=== PATIENT | male | born 1990 | race Caucasian/White ===

== ENCOUNTER 2017-09-17 12:02 | Emergency (ER) | payer BC, SELFPAY ==
[2017-09-17] MEDS ORDERED: MOTRIN 600 MG PO ONE (12:27)
--- NOTE | 2017-09-17 12:35 | ERPHSYRPT ---
- History of Present Illness Time Seen by Provider: 09/17/17 12:21 Source: patient, family Physician History: CC: right wrist pain Hx: 26 y/o patient who sees Dr Mills for ortho issues. He was playing basketball for 4 hours 3 weeks ago and felt a pop in right wrist. Pain since, worsened, some swelling. 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 Severity of Pain-Max: moderate Severity of Pain-Current: moderate Extremities Pain Location: wrist: right Allergies/Adverse Reactions: No Known Drug Allergies Allergy (Verified 09/17/17 12:43) Home Medications: No Home Meds [No Home Meds] 0 mg PO UD 05/15/16 [History] Hx Tetanus, Diphtheria Vaccination/Date Given: Yes Hx Influenza Vaccination/Date Given: No Hx Pneumococcal Vaccination/Date Given: No - Review of Systems Constitutional: No Symptoms, No Fever, No Chills Musculoskeletal: Injury (right wrist), No Back Pain, No Neck Pain Neurological: No Focal Weakness, No Parasthesia - Past Medical History Pertinent Past Medical History: No Neurological History: Migraines ENT History: No Pertinent History Cardiac History: No Pertinent History Respiratory History: No Pertinent History Endocrine Medical History: No Pertinent History Musculoskeletal History: No Pertinent History GI Medical History: No Pertinent History History: No Pertinent History Psycho-Social History: Depression, Other Male Reproductive Disorders: No Pertinent History - Past Surgical History Past Surgical History: Yes Neuro Surgical History: No Pertinent History Cardiac: No Pertinent History Respiratory: No Pertinent History Gastrointestinal: No Pertinent History Genitourinary: No Pertinent History Musculoskeletal: Orthopedic Surgery Male Surgical History: No Pertinent History Other Surgical History: CARPAL TUNEL SURGERY - Social History Smoking Status: Current every day smoker How long have you smoked: YRS Exposure to second hand smoke: Yes Drug Use: none Patient Lives Alone: No - Nursing Vital Signs Nursing Vital Signs: Initial Vital Signs Temperature 98.9 F 09/17/17 12:23 Pulse Rate 88 09/17/17 12:23 Respiratory Rate 16 09/17/17 12:23 Blood Pressure 112/50 09/17/17 12:23 O2 Sat by Pulse Oximetry 99 09/17/17 12:23 - Physical Exam General Appearance: alert Eyes, Ears, Nose, Throat Exam: moist mucous membranes Neck Exam: supple Cardiovascular/Respiratory Exam: regular rate/rhythm Shoulder Exam: normal inspection, non-tender, no evidence of injury Elbow/Forearm Exam: normal inspection, non-tender, no evidence of injury Wrist Exam: normal inspection, limited ROM (radial deviation limited, pain in dorsal radial wrist area. No redness.), No swelling Hand Exam: normal inspection, non-tender, no evidence of injury Neuro/Tendon Exam: normal sensation, normal motor functions Mental Status Exam: alert, oriented x 3, cooperative Skin Exam: warm, dry, No rash SpO2 Interpretation: normal SpO2: 99 Oxygen Delivery: Room Air - Course Nursing assessment & vital signs reviewed: Yes - Radiology Exams right wrist X-ray Interpretation: Teleradiologist Report, Negative Ordered Tests: Active Orders 24 hr Category Date Time Status Cold Application STAT Care 09/17/17 12:26 Active Splint STAT Care 09/17/17 12:26 Active WRIST (MIN 3 VIEWS) Stat Exams 09/17/17 12:26 Completed Medication Summary Discontinued Medications Generic Name Dose Route Start Last Admin Trade Name Freq PRN Reason Stop Dose Admin Ibuprofen 600 mg 09/17/17 12:27 Motrin 600 Mg PO 09/17/17 12:28 STAT ONE - Progress Progress Note: 09/17/17 12:50 He appears to have sprain or tendonitis. Advised splint, follow up with dr Mills and NSAID. Counseled pt/family regarding: diagnosis, need for follow-up, rad results - Departure Time of Disposition: 12:50 Departure Disposition: Home Clinical Impression: Tendonitis of wrist, right Condition: Stable Critical Care Time: No Referrals: DOCTOR,NO FAMILY [Primary Care Provider] - SHERON MILLS [NON-STAFF PHY W/O PRIVILEGES] - Instructions: Wrist Sprain Additional Instructions: Splint for a few days. Rx ibuprofen. Call to see Dr Mills for follow up. Prescriptions: Ibuprofen 600 mg PO Q6H PRN PRN #20 tablet PRN Reason: Pain
[2017-09-17] MEDS ORDERED: MOTRIN 600 MG ONE (12:47)
--- NOTE | 2017-09-17 12:48 | XRAY ---
Indication: Pain and loss of mobility following basketball injury 3 weeks ago. Comparison: None 3 views of the right wrist obtained. No bony, articular, or soft tissue abnormalities.
[2017-09-17 12:57] VITALS: BP 100/60; PULSE 59; O2SAT 94
== END 2017-09-17 13:13 | disposition home or self-care (01) ==
LOC: ED 12:02
DX: M77.9 Enthesopathy, unspecified (principal); X50.0XXD Overexertion from strenuous movement or load, subsequent encounter; M25.531 Pain in right wrist
CPT/HCPCS: 73110; 99283; L3908; A9270-GY

== ENCOUNTER 2017-11-23 22:35 | Emergency (ER) | payer BC ==
[2017-11-23 22:56] VITALS: O2SAT 98
--- NOTE | 2017-11-23 23:16 | ERPHSYRPT ---
- History of Present Illness Time Seen by Provider: 11/23/17 23:11 Historian: patient, family Exam Limitations: no limitations Patient Subjective Stated Complaint: pt co mid abdominal pain x2 days; constant ; anything he eats or drinks makes pain immediately worse; pt also co hiccups with any po intake x2 days; also co urinary frequency and hesitency x2 days. Triage Nursing Assessment: pt a&o x3; skin p, w, & d; ambulated to room per self ; denies any pain with palpation of abdomen; family at bedside. Physician History: pt has 2 day hx of hicups tender mid epigastrium on exam - not luigi diet and complaining of fever discussed risk and benefit of CT and pt wishes to proceed; Timing/Duration: day(s) Activities at Onset: none Quality: fullness, sharpness, throbbing Abdominal Pain Onset Location: RUQ, epigastric Pain Radiation: no radiation Severity of Pain-Max: moderate Severity of Pain-Current: moderate Associated Symptoms: nausea, other (hiccups) Allergies/Adverse Reactions: No Known Drug Allergies Allergy (Verified 11/23/17 22:57) Home Medications: No Home Meds [No Home Meds] 0 mg PO UD 05/15/16 [History] Hx Tetanus, Diphtheria Vaccination/Date Given: Yes Hx Influenza Vaccination/Date Given: No Hx Pneumococcal Vaccination/Date Given: No Immunizations Up to Date: No - Review of Systems Constitutional: Fever, Malaise, No Chills Eyes: No Symptoms Ears, Nose, & Throat: No Symptoms Respiratory: No Cough, No Dyspnea Cardiac: No Chest Pain, No Edema, No Syncope Abdominal/Gastrointestinal: Abdominal Pain, Nausea, Appetite Changes, No Vomiting, No Diarrhea Genitourinary Symptoms: No Dysuria Musculoskeletal: No Back Pain, No Neck Pain Skin: No Rash Neurological: No Dizziness, No Focal Weakness, No Sensory Changes Psychological: No Symptoms Endocrine: No Symptoms All Other Systems: Reviewed and Negative - Past Medical History Pertinent Past Medical History: No Neurological History: Migraines ENT History: No Pertinent History Cardiac History: No Pertinent History Respiratory History: No Pertinent History Endocrine Medical History: No Pertinent History Musculoskeletal History: No Pertinent History GI Medical History: No Pertinent History History: No Pertinent History Psycho-Social History: Depression, Other Male Reproductive Disorders: No Pertinent History - Past Surgical History Past Surgical History: Yes Neuro Surgical History: No Pertinent History Cardiac: No Pertinent History Respiratory: No Pertinent History Gastrointestinal: No Pertinent History Genitourinary: No Pertinent History Musculoskeletal: Orthopedic Surgery Male Surgical History: No Pertinent History Other Surgical History: CARPAL TUNEL SURGERY - Social History Smoking Status: Current every day smoker How long have you smoked: 12 Exposure to second hand smoke: No Drug Use: none Patient Lives Alone: No - Nursing Vital Signs Nursing Vital Signs: Initial Vital Signs Temperature 99.6 F 11/23/17 22:44 Pulse Rate 85 11/23/17 22:44 Respiratory Rate 16 11/23/17 22:44 Blood Pressure 140/85 11/23/17 22:44 O2 Sat by Pulse Oximetry 98 11/23/17 22:44 Pain Scale Pain Intensity 8 - Physical Exam General Appearance: no apparent distress, alert Eye Exam: PERRL/EOMI, eyes nml inspection Ears, Nose, Throat Exam: normal ENT inspection, pharynx normal, moist mucous membranes Neck Exam: normal inspection, non-tender, supple, full range of motion Respiratory Exam: normal breath sounds, lungs clear, No respiratory distress Cardiovascular Exam: regular rate/rhythm, normal heart sounds Gastrointestinal/Abdomen Exam: soft, tenderness (epigastrium and RUQ), No mass Rectal Exam: deferred Back Exam: normal inspection, normal range of motion, No CVA tenderness, No vertebral tenderness Extremity Exam: normal inspection, normal range of motion, pelvis stable Neurologic Exam: alert, oriented x 3, cooperative, normal mood/affect, nml cerebellar function, sensation nml, No motor deficits Skin Exam: normal color, warm, dry SpO2: 98 Oxygen Delivery: Room Air - Course Nursing assessment & vital signs reviewed: Yes EKG Interpreted by Me: Sinus Rhythm, NORMAL AXIS, NORMAL INTERVALS, Non- specific ST Changes - Radiology Exams Chest X-ray Interpretation: Reviewed by me, No Pneumonia, No Pneumothorax Ordered Tests: Active Orders 24 hr Category Date Time Status Clean Catch Urine Specimen STAT Care 11/23/17 22:53 Active EKG-ER Only STAT Care 11/23/17 23:17 Active IV Insertion STAT Care 11/23/17 22:53 Active NPO (ED) STAT Care 11/23/17 23:17 Active Sling Application STAT Care 11/24/17 00:15 Inactive ABDOMEN AND PELVIS W/0 CONTRAS [CT] Stat Exams 11/23/17 23:19 Taken CHEST 2 VIEWS (PA AND LAT) Stat Exams 11/23/17 23:18 Taken AMYLASE Stat Lab 11/23/17 22:45 Completed CBC W DIFF Stat Lab 11/23/17 22:45 Completed CMP Stat Lab 11/23/17 22:45 Completed LIPASE Stat Lab 11/23/17 22:45 Completed Lactic Acid Stat Lab 11/23/17 23:25 Completed TROPONIN Q3H Lab 11/23/17 22:45 Completed TROPONIN Q3H Lab 11/24/17 02:30 Ordered TROPONIN Q3H Lab 11/24/17 05:30 Ordered TROPONIN Q3H Lab 11/24/17 08:30 Ordered TROPONIN Q3H Lab 11/24/17 11:30 Ordered UA W/RFX UR CULTURE Stat Lab 11/23/17 22:45 Completed Medication Summary Discontinued Medications Generic Name Dose Route Start Last Admin Trade Name Freq PRN Reason Stop Dose Admin Sodium Chloride 1,000 mls @ 999 mls/hr 11/23/17 23:17 11/23/17 23:25 Sodium Chloride 0.9% 1000 Ml IV 11/24/17 00:17 999 mls/hr .Q1H1M STA Administration Sodium Chloride Confirm 11/23/17 23:24 Sodium Chloride 0.9% 1000 Ml Administered 11/23/17 23:25 Dose 1,000 mls @ ud .ROUTE .STK-MED ONE Ondansetron HCl 4 mg 11/23/17 23:17 11/23/17 23:25 Zofran 4 Mg/2 Ml Vial IV 11/23/17 23:18 4 mg STAT ONE Administration Ondansetron HCl Confirm 11/23/17 23:23 Zofran 4 Mg/2 Ml Vial Administered 11/23/17 23:24 Dose 4 mg .ROUTE .STK-MED ONE Lab/Rad Data: Laboratory Result Diagrams 11/23/17 22:45 11/23/17 22:45 Laboratory Results 11/23/17 11/23/17 11/23/17 Range/Units 23:25 22:45 22:45 WBC (4.0-10.5) K/mm3 RBC (4.1-5.6) M/mm3 Hgb (12.5-18.0) gm/dl Hct (42-50) % MCV (78-100) fl MCH (26-32) pg MCHC (32-36) g/dl RDW (11.5-14.0) % Plt Count (150-450) K/mm3 MPV (6-9.5) fl Gran % (36.0-66.0) % Eos # (Auto) (0-0.5) Absolute Lymphs (auto) (1.0-4.6) Absolute Monos (auto) (0.0-1.3) Lymphocytes % (24.0-44.0) % Monocytes % (0.0-12.0) % Eosinophils % (0.00-5.0) % Basophils % (0.0-0.4) % Absolute Granulocytes (1.4-6.9) Basophils # (0-0.4) Sodium (137-145) mmol/L Potassium (3.5-5.1) mmol/L Chloride (98-107) mmol/L Carbon Dioxide (22-30) mmol/L Anion Gap (5-15) MEQ/L BUN (9-20) mg/dL Creatinine (0.66-1.25) mg/dL Estimated GFR ML/MIN Glucose (74-106) mg/dL Lactic Acid 1.3 (0.4-2.0) Calcium (8.4-10.2) mg/dL Total Bilirubin (0.2-1.3) mg/dL AST (17-59) U/L ALT (0-50) U/L Alkaline Phosphatase (38-126) U/L Troponin I < 0.012 (0.000-0.034) ng/mL Serum Total Protein (6.3-8.2) g/dL Albumin (3.5-5.0) g/dL Amylase (30-110) U/L Lipase (23-300) U/L Ur Collection Type CLEAN CATCH Urine Color LT.YELLOW (YELLOW) Urine Appearance CLEAR (CLEAR) Urine pH 7.0 (5-6) Ur Specific [place] 1.010 (1.005-1.025) Urine Protein NEGATIVE (Negative) Urine Ketones NEGATIVE (NEGATIVE) Urine Blood NEGATIVE (0-5) [place]/ul Urine Nitrite NEGATIVE (NEGATIVE) Urine Bilirubin NEGATIVE (NEGATIVE) Urine Urobilinogen NORMAL (0-1) mg/dL Ur Leukocyte Esterase NEGATIVE (NEGATIVE) Urine Culture Reflexed NO (NO) Urine Glucose NEGATIVE (NEGATIVE) mg/dL Specimen Received 11/23/17 [id number] 11/23/17 11/23/17 Range/Units 22:45 22:45 WBC 12.4 H (4.0-10.5) K/mm3 RBC 4.96 (4.1-5.6) M/mm3 Hgb 15.8 (12.5-18.0) gm/dl Hct 44.7 (42-50) % MCV 90.1 (78-100) fl MCH 31.9 (26-32) pg MCHC 35.3 (32-36) g/dl RDW 12.2 (11.5-14.0) % Plt Count 239 (150-450) K/mm3 MPV 10.5 H (6-9.5) fl Gran % 72.7 H (36.0-66.0) % Eos # (Auto) 0.24 (0-0.5) Absolute Lymphs (auto) 1.98 (1.0-4.6) Absolute Monos (auto) 1.14 (0.0-1.3) Lymphocytes % 16.0 L (24.0-44.0) % Monocytes % 9.2 (0.0-12.0) % Eosinophils % 1.9 (0.00-5.0) % Basophils % 0.2 (0.0-0.4) % Absolute Granulocytes 9.01 H (1.4-6.9) Basophils # 0.02 (0-0.4) Sodium 143 (137-145) mmol/L Potassium 4.0 (3.5-5.1) mmol/L Chloride 100 (98-107) mmol/L Carbon Dioxide 33 H (22-30) mmol/L Anion Gap 14.1 (5-15) MEQ/L BUN 22 H (9-20) mg/dL Creatinine 0.93 (0.66-1.25) mg/dL Estimated GFR > 60.0 ML/MIN Glucose 98 (74-106) mg/dL Lactic Acid (0.4-2.0) Calcium 9.8 (8.4-10.2) mg/dL Total Bilirubin 0.30 (0.2-1.3) mg/dL AST 27 (17-59) U/L ALT 24 (0-50) U/L Alkaline Phosphatase 84 (38-126) U/L Troponin I (0.000-0.034) ng/mL Serum Total Protein 7.1 (6.3-8.2) g/dL Albumin 4.5 (3.5-5.0) g/dL Amylase 91 (30-110) U/L Lipase 76 (23-300) U/L Ur Collection Type Urine Color (YELLOW) Urine Appearance (CLEAR) Urine pH (5-6) Ur Specific [place] (1.005-1.025) Urine Protein (Negative) Urine Ketones (NEGATIVE) Urine Blood (0-5) [place]/ul Urine Nitrite (NEGATIVE) Urine Bilirubin (NEGATIVE) Urine Urobilinogen (0-1) mg/dL Ur Leukocyte Esterase (NEGATIVE) Urine Culture Reflexed (NO) Urine Glucose (NEGATIVE) mg/dL Specimen Received - Progress Progress: improved, re-examined Progress Note: 11/24/17 00:32 pt reports regurg of acid in mouth and symptoms consistent with acid reflux ; explained limitations of testing performed and that additional pathology could be evolving and need for further w/u including scoping with PCP - he understands and prefers outpt f/u to further testing in er or admit at this time - also advised that early appe could still be possible even with negative CT and to return if further pain meantime 11/24/17 00:42 tolerating PO challenge Counseled pt/family regarding: lab results, diagnosis, need for follow-up, rad results - Departure Time of Disposition: 00:35 Departure Disposition: Home Clinical Impression: Abdominal pain of unknown cause Condition: Good Critical Care Time: No Referrals: DOCTOR,NO FAMILY [Primary Care Provider] - Instructions: Acute Abdomen (Belly Pain), Adult (DC), Acid Reflux ( Gastroesophageal Reflux Disease), Adult (DC), Nair's Esophagus Additional Instructions: We have not determined the exact cause for your abdominal pain. Even though the CT scan is negative , there can still be other causes for this pain . It is important to followup with you Dr to cofirm if GERD may be present , and to return meantime if not improving susanne to recheck appendix if pain in that area. Prescriptions: Sucralfate 1 gm [Carafate 1 GM] 1 g PO ACHS #20 tablet
[2017-11-23] MEDS ORDERED: Sodium Chloride 0.9% 1000 ML 1,000 ML IV STA (23:17)
[2017-11-23] MEDS ORDERED: Zofran 4 MG/2 ML VIAL IV ONE (23:17)
[2017-11-23] MEDS ORDERED: Zofran 4 MG/2 ML VIAL ONE (23:23)
[2017-11-23] MEDS ORDERED: Sodium Chloride 0.9% 1000 ML 1,000 ML ONE (23:24)
[2017-11-23 23:30] LABS: BASOPHIL % 0.2 % (0.0-0.4); Basophil (Absolute #) 0.02 (0-0.4); Eosinophil % 1.9 % (0.00-5.0); Eosinophil (Absolute #) 0.24 (0-0.5); Granulocyte Absolute (ANC) 9.01 (1.4-6.9); Granulocytes % 72.7 % (36.0-66.0); Hematocrit 44.7 % (42-50); Hemoglobin 15.8 gm/dl (12.5-18.0); Lymphocyte (Absolute #) 1.98 (1.0-4.6); Mean Cell Volume 90.1 fl (78-100); Mean Corpuscular Hemoglobin 31.9 pg (26-32); Mean Corpuscular Hgb Concent. 35.3 g/dl (32-36); Mean Platelet Volume 10.5 fl (6-9.5); Monocyte (Absolute #) 1.14 (0.0-1.3); Monocytes % 9.2 % (0.0-12.0); Platelet Count 239 K/mm3 (150-450); Red Blood Count 4.96 M/mm3 (4.1-5.6); Red Cell Distribution Width 12.2 % (11.5-14.0); White Blood Count 12.4 K/mm3 (4.0-10.5)
[2017-11-23 23:32] LABS: Appearance CLEAR (CLEAR); Bilirubin NEGATIVE (NEGATIVE); Blood NEGATIVE Ery/ul (0-5); Glucose NEGATIVE (NEGATIVE); Ketones NEGATIVE (NEGATIVE); Leukocyte Esterase NEGATIVE (NEGATIVE); Nitrite NEGATIVE (NEGATIVE); Protein,Urine Dip NEGATIVE (Negative); Urobilinogen NORMAL mg/dL (0-1)
[2017-11-23 23:34] LABS: ALBUMIN 4.5 g/dL (3.5-5.0); ALKALINE PHOSPHATASE 84 U/L (38-126); AMYLASE 91 U/L (30-110); ANION GAP 14.1 MEQ/L (5-15); BLOOD UREA NITROGEN 22 mg/dL (9-20); CHLORIDE 100 mmol/L (98-107); Calcium 9.8 mg/dL (8.4-10.2); Carbon Dioxide 33 mmol/L (22-30); Creatinine 1 0.93 mg/dL (0.66-1.25); Glucose 98 mg/dL (74-106); LIPASE 76 U/L (23-300); SGOT/AST 27 U/L (17-59); SGPT/ALT 24 U/L (0-50); SODIUM 143 mmol/L (137-145); Total Protein 7.1 g/dL (6.3-8.2)
[2017-11-24] MEDS ORDERED: Carafate 1 GM PO ONE ×2 (00:39→00:47)
[2017-11-24 00:50] VITALS: BP 123/69; PULSE 58
--- NOTE | 2017-11-24 06:59 | XRAY ---
Indication: Epigastric pain. Comparison: None PA/lateral chest demonstrates normal heart and lungs. Bony thorax intact with mild double curvature scoliosis.
== END 2017-11-24 01:02 | disposition home or self-care (01) ==
LOC: ED 22:35
DX: R10.11 Right upper quadrant pain (principal); R10.13 Epigastric pain
CPT/HCPCS: 36000; 36415; 71046; 74176; 80053; 81002; 82150; 83605; 83690; 84484; 85025; 93005; 96360; 96374; 99284; J2405; A9270-GY

== ENCOUNTER 2018-02-18 19:34 | Emergency (ER) | payer BC ==
[2018-02-18] MEDS ORDERED: TORAdol 30 mg Injection IM ONE (20:07)
[2018-02-18] MEDS ORDERED: PEN-VEE K PO ONE (20:08)
--- NOTE | 2018-02-18 20:08 | ERPHSYRPT ---
- History of Present Illness Time Seen by Provider: 02/18/18 20:03 Source: patient, family Exam Limitations: no limitations Physician History: The patient is a 27-year-old male with his girlfriend complaining of worsening right upper gum and tooth pain for one week. He is unsure if he's had a fever but he thinks he's had one. The pain is extending from his upper jaw up towards his right ear. He called the dentist and could not get in for a few days. He has been taking Tylenol and ibuprofen. Timing/Duration: gradual onset, weeks (1) Severity: moderate ENT Location: dental Prearrival Treatment: no prearrival treatment Modifying Factors: Improves With: nothing Associated Symptoms: tooth pain Allergies/Adverse Reactions: No Known Drug Allergies Allergy (Verified 11/23/17 22:57) Home Medications: No Home Meds [No Home Meds] 0 mg PO UD 05/15/16 [History] Hx Tetanus, Diphtheria Vaccination/Date Given: Yes Hx Influenza Vaccination/Date Given: No Hx Pneumococcal Vaccination/Date Given: No - Review of Systems Constitutional: No Fever, No Chills Eyes: No Symptoms Ears, Nose, & Throat: Mouth Pain Respiratory: No Cough, No Dyspnea Cardiac: No Chest Pain, No Edema, No Syncope Abdominal/Gastrointestinal: No Abdominal Pain, No Nausea, No Vomiting, No Diarrhea Genitourinary Symptoms: No Dysuria Musculoskeletal: No Back Pain, No Neck Pain Skin: No Rash Neurological: No Dizziness, No Focal Weakness, No Sensory Changes Psychological: No Symptoms Endocrine: No Symptoms Hematologic/Lymphatic: No Symptoms Immunological/Allergic: No Symptoms All Other Systems: Reviewed and Negative - Past Medical History Pertinent Past Medical History: No Neurological History: Migraines ENT History: No Pertinent History Cardiac History: No Pertinent History Respiratory History: No Pertinent History Endocrine Medical History: No Pertinent History Musculoskeletal History: No Pertinent History GI Medical History: No Pertinent History History: No Pertinent History Psycho-Social History: Depression, Other Male Reproductive Disorders: No Pertinent History - Past Surgical History Past Surgical History: Yes Neuro Surgical History: No Pertinent History Cardiac: No Pertinent History Respiratory: No Pertinent History Gastrointestinal: No Pertinent History Genitourinary: No Pertinent History Musculoskeletal: Orthopedic Surgery Male Surgical History: No Pertinent History Other Surgical History: CARPAL TUNEL SURGERY - Social History Smoking Status: Current every day smoker How long have you smoked: 12 Exposure to second hand smoke: No Drug Use: none Patient Lives Alone: No - Nursing Vital Signs Nursing Vital Signs: Initial Vital Signs Temperature 98.0 F 02/18/18 19:35 Pulse Rate 69 02/18/18 19:35 Respiratory Rate 18 02/18/18 19:35 Blood Pressure 130/80 02/18/18 19:35 O2 Sat by Pulse Oximetry 98 02/18/18 19:35 Pain Scale Pain Intensity 20 - Physical Exam General Appearance: no apparent distress, alert Eye Exam: bilateral eye: PERRL, EOMI Ear Exam: bilateral ear: TM normal Nasal Exam: normal inspection Throat Exam: maxillary swelling (swelling, redness, and tenderness to right upper anterior gumline) Neck Exam: supple Cardiovascular/Respiratory Exam: normal breath sounds, regular rate/rhythm Abdominal Exam: non-tender, soft Neurologic Exam: alert, oriented x 3, sensation nml, No motor deficits Skin Exam: normal color, warm, dry SpO2 Interpretation: normal SpO2: 98 Oxygen Delivery: Room Air - Progress Progress: improved Counseled pt/family regarding: diagnosis, need for follow-up - Departure Time of Disposition: 20:07 Departure Disposition: Home Clinical Impression: Dental abscess Condition: Stable Critical Care Time: No Referrals: DOCTOR,NO FAMILY [Primary Care Provider] - Additional Instructions: You have an infection in the gum tissue of your right upper jaw. You were given Toradol 60 mg by IM in the ER. You're also given penicillin 500 mg orally. Take penicillin 500 mg 4 times a day for 10 days. Take naproxen 500 mg 2 times a day as needed for pain. Follow-up with dentist within one week. Prescriptions: Naproxen 500 mg PO BID PRN #30 tablet. Penicillin V Potassium 500 mg PO QID #40 tablet
[2018-02-18] MEDS ORDERED: TORAdol 30 mg Injection ONE (20:14)
[2018-02-18] MEDS ORDERED: PEN-VEE K ONE (20:16)
[2018-02-18 20:33] VITALS: BP 112/72; PULSE 65; O2SAT 99
== END 2018-02-18 20:29 | disposition home or self-care (01) ==
LOC: ED 19:34
DX: K04.7 Periapical abscess without sinus (principal)
CPT/HCPCS: 96372; 99283; J1885; A9270-GY

== ENCOUNTER 2018-05-07 12:21 | Emergency (ER) | payer BC ==
[2018-05-07] MEDS ORDERED: Sodium Chloride 0.9% 1000 ML 1,000 ML IV STA (12:54)
[2018-05-07] MEDS ORDERED: CLINDAMYCIN-D5W 600 MG/50 ML*** 600 MG/50 ML BAG IV STA (12:55)
[2018-05-07] MEDS ORDERED: Sodium Chloride 0.9% 1000 ML 1,000 ML ONE (13:13)
[2018-05-07] MEDS ORDERED: CLINDAMYCIN-D5W 600 MG/50 ML*** 600 MG/50 ML BAG IV ONE (13:14)
[2018-05-07 13:15] LABS: BASOPHIL % 0.2 % (0.0-0.4); Basophil (Absolute #) 0.02 (0-0.4); Eosinophil % 1.6 % (0.00-5.0); Eosinophil (Absolute #) 0.17 (0-0.5); Granulocyte Absolute (ANC) 7.96 (1.4-6.9); Hematocrit 38.2 % (42-50); Hemoglobin 13.5 gm/dl (12.5-18.0); Lymphocytes % 14.2 % (24.0-44.0); Mean Cell Volume 89.5 fl (78-100); Mean Corpuscular Hemoglobin 31.6 pg (26-32); Mean Corpuscular Hgb Concent. 35.3 g/dl (32-36); Mean Platelet Volume 9.9 fl (6-9.5); Monocyte (Absolute #) 0.95 (0.0-1.3); Platelet Count 305 K/mm3 (150-450); Red Blood Count 4.27 M/mm3 (4.1-5.6); Red Cell Distribution Width 12.6 % (11.5-14.0); White Blood Count 10.6 K/mm3 (4.0-10.5)
--- NOTE | 2018-05-07 13:28 | ERPHSYRPT ---
- History of Present Illness Time Seen by Provider: 05/07/18 12:45 Source: patient Exam Limitations: clinical condition Patient Subjective Stated Complaint: Thinks a spider bit him 3 days ago on right elbow Triage Nursing Assessment: Pt c/o of a possible spider bite to his right elbow, red, swollen, hot to touch, redness and swelling radiates up and down his arm, puss at tip of wound, nausea, vitals wnl, pulses normal, Physician History: PATIENT COMPLAINS OF POSSIBLE INSECT BITE BELOW HIS RIGHT ELBOW X 3 DAYS, HAS ASSOCIATED PAIN, REDNESS WITH SWELLING. UNSURE OF FEVER OR CHILLS. Occurred: days ago Method of Injury: other (INSECT BITE) Quality: constant, throbbing Severity of Pain-Max: mild Severity of Pain-Current: mild Extremities Pain Location: elbow: right Modifying Factors: Improves With: movement Associated Symptoms: other (PAIN, SWELLING REDNESS) Allergies/Adverse Reactions: No Known Drug Allergies Allergy (Verified 05/07/18 12:39) Home Medications: No Home Meds [No Home Meds] 0 mg PO UD 05/15/16 [History] Hx Tetanus, Diphtheria Vaccination/Date Given: No Hx Influenza Vaccination/Date Given: No Hx Pneumococcal Vaccination/Date Given: No - Review of Systems Constitutional: No Symptoms Musculoskeletal: Joint Redness, Joint Pain, Joint Swelling - Past Medical History Pertinent Past Medical History: Yes Neurological History: Migraines ENT History: No Pertinent History Cardiac History: No Pertinent History Respiratory History: No Pertinent History Endocrine Medical History: No Pertinent History Musculoskeletal History: No Pertinent History GI Medical History: No Pertinent History History: No Pertinent History Psycho-Social History: Depression, Other Male Reproductive Disorders: No Pertinent History - Past Surgical History Past Surgical History: Yes Neuro Surgical History: No Pertinent History Cardiac: No Pertinent History Respiratory: No Pertinent History Gastrointestinal: No Pertinent History Genitourinary: No Pertinent History Musculoskeletal: Orthopedic Surgery Male Surgical History: No Pertinent History Other Surgical History: CARPAL TUNEL SURGERY, finger - Social History Smoking Status: Current every day smoker How long have you smoked: 12 Exposure to second hand smoke: No Drug Use: none Patient Lives Alone: No - Nursing Vital Signs Nursing Vital Signs: Initial Vital Signs Temperature 98.0 F 05/07/18 12:29 Pulse Rate 84 05/07/18 12:29 Blood Pressure 126/79 05/07/18 12:29 O2 Sat by Pulse Oximetry 100 05/07/18 12:29 Pain Scale Pain Intensity 6 - Physical Exam General Appearance: no apparent distress Elbow/Forearm Exam: soft tissue tenderness, swelling (THERE IS OLECRANON SWELLING WITH WARMTH, ERYTHEMA 4CM X 11CM, WITH CORE DRAINAGE, ) SpO2 Interpretation: normal SpO2: 100 Oxygen Delivery: Room Air Ordered Tests: Active Orders 24 hr Category Date Time Status IV Insertion STAT Care 05/07/18 12:54 Active BLOOD CULTURE Stat Lab 05/07/18 13:10 Received CBC W DIFF Stat Lab 05/07/18 13:00 Completed CULTURE,WOUND Stat Lab 05/07/18 13:31 Ordered Medication Summary Generic Name Dose Route Start Last Admin Trade Name Freq PRN Reason Stop Dose Admin Sodium Chloride 1,000 mls @ 999 mls/hr 05/07/18 12:54 05/07/18 13:25 Sodium Chloride 0.9% 1000 Ml IV 05/07/18 13:54 999 mls/hr .Q1H1M STA Administration Discontinued Medications Generic Name Dose Route Start Last Admin Trade Name Freq PRN Reason Stop Dose Admin Clindamycin HCl/Dextrose 600 mg in 50 mls @ 100 mls/hr 05/07/18 12:55 13:25 Clindamycin-D5w 600 Mg/50 Ml IV 05/07/18 13:24 100 mls/hr STAT STA 100 mls/hr Administration Sodium Chloride Confirm 05/07/18 13:13 Sodium Chloride 0.9% 1000 Ml Administered 05/07/18 13:14 Dose 1,000 mls @ ud .ROUTE .STK-MED ONE Clindamycin HCl/Dextrose Confirm 05/07/18 13:14 Clindamycin-D5w 600 Mg/50 Ml Administered 05/07/18 13:15 Dose 600 mg in 50 mls @ ud IV .STK-MED ONE Lab/Rad Data: Laboratory Result Diagrams 05/07/18 13:00 Laboratory Results 05/07/18 Range/Units 13:00 WBC 10.6 H (4.0-10.5) K/mm3 RBC 4.27 (4.1-5.6) M/mm3 Hgb 13.5 (12.5-18.0) gm/dl Hct 38.2 L (42-50) % MCV 89.5 (78-100) fl MCH 31.6 (26-32) pg MCHC 35.3 (32-36) g/dl RDW 12.6 (11.5-14.0) % Plt Count 305 (150-450) K/mm3 MPV 9.9 H (6-9.5) fl Gran % 75.0 H (36.0-66.0) % Eos # (Auto) 0.17 (0-0.5) Absolute Lymphs (auto) 1.50 (1.0-4.6) Absolute Monos (auto) 0.95 (0.0-1.3) Lymphocytes % 14.2 L (24.0-44.0) % Monocytes % 9.0 (0.0-12.0) % Eosinophils % 1.6 (0.00-5.0) % Basophils % 0.2 (0.0-0.4) % Absolute Granulocytes 7.96 H (1.4-6.9) Basophils # 0.02 (0-0.4) - Progress Progress Note: 05/07/18 13:28 IV CLINDAMYCIN 600MG IVPB - Departure Time of Disposition: 13:35 Departure Disposition: Home Clinical Impression: CELLLITIS RIGHT OLECRANON Condition: Stable Critical Care Time: No Referrals: DOCTOR,NO FAMILY [Primary Care Provider] - Additional Instructions: TORADOL 10MG EVERY 6 HOURS FOR PAIN. ANTIBIOTIC CLINDAMYCIN 300MG EVERY 6 HOURS FOR 10 DAYS. TYLENOL OR MOTRIN FOR FEVER NEEDED. FOLLOWUP WITH YOUR PRIMARY CARE PROVIDER IN 1 WEEK. Prescriptions: Ketorolac Tromethamine [Toradol] 10 mg PO Q6HPRN PRN #20 tablet PRN Reason: Pain Clindamycin HCl 300 mg PO QID #40 capsule
[2018-05-07 13:54] VITALS: BP 131/82; PULSE 75; O2SAT 99
== END 2018-05-07 13:57 | disposition home or self-care (01) ==
LOC: ED 12:21
DX: L03.113 Cellulitis of right upper limb (principal)
CPT/HCPCS: 36415; 85025; 87040; 87070; 87077; 87186; 96365; 99284; 99285

== ENCOUNTER 2018-05-11 17:35 | Emergency (ER) | payer BC ==
[2018-05-11 18:04] VITALS: BP 123/70; PULSE 63; O2SAT 100
[2018-05-11] MEDS ORDERED: CLINDAMYCIN-D5W 600 MG/50 ML*** 600 MG/50 ML BAG IV STA (18:07)
--- NOTE | 2018-05-11 18:07 | ERPHSYRPT ---
- History of Present Illness Time Seen by Provider: 05/11/18 18:00 Source: patient Exam Limitations: clinical condition Patient Subjective Stated Complaint: pt reports approx 5 days ago he was bit by an insect leading to an abscess. states he was seen here recently and treated for cellulitis. reports that he has not been able to fill his prescriptions. states that he has removed the scab from the wound and drained it. reports there was a lot of drainage at that time. Triage Nursing Assessment: pt is aox3, pupils perrl, pt afebrile, radial pulses strong and equal, skin is pink warm dry. healing abscess noted to the right lower arm. wound is open and draining serosanguineous fluid. area of redness is measuring approx 3 cm. Physician History: PATIENT EVALUATED IN EMERGENCY ROOM 4 DAYS AGO AND TREATED FOR CELLULITIS OF RIGHT ELBOW BUT HAS BEEN UNABLE TO OBTAIN HIS PRESCRIPTION FOR CLINDAMYCIN 300MG EVERY 6 HOURS FOR 10 DAYS. ADMITS TO HAVING DRAINAGE FROM SITE. ADMITS TO ATTEMPTING TO DRAIN SWELLING USING A NEEDLE. HE DENIES FEVER OR CHILLS. Occurred: days ago Method of Injury: other (SUSTAINED INSECT BIT TO ARM) Severity of Pain-Max: mild Severity of Pain-Current: mild Extremities Pain Location: elbow: right Modifying Factors: Improves With: nothing Associated Symptoms: none Allergies/Adverse Reactions: No Known Drug Allergies Allergy (Verified 05/07/18 12:39) Home Medications: No Home Meds [No Home Meds] 0 mg PO UD 05/15/16 [History] Hx Tetanus, Diphtheria Vaccination/Date Given: Yes Hx Influenza Vaccination/Date Given: No Hx Pneumococcal Vaccination/Date Given: No Immunizations Up to Date: Yes - Review of Systems Musculoskeletal: Joint Redness Neurological: No Symptoms Psychological: No Symptoms Endocrine: No Symptoms Hematologic/Lymphatic: No Symptoms - Past Medical History Pertinent Past Medical History: Yes Neurological History: Migraines ENT History: No Pertinent History Cardiac History: No Pertinent History Respiratory History: No Pertinent History Endocrine Medical History: No Pertinent History Musculoskeletal History: No Pertinent History GI Medical History: No Pertinent History History: No Pertinent History Psycho-Social History: Depression, Other Male Reproductive Disorders: No Pertinent History - Past Surgical History Past Surgical History: Yes Neuro Surgical History: No Pertinent History Cardiac: No Pertinent History Respiratory: No Pertinent History Gastrointestinal: No Pertinent History Genitourinary: No Pertinent History Musculoskeletal: Orthopedic Surgery Male Surgical History: No Pertinent History Other Surgical History: CARPAL TUNEL SURGERY, finger - Social History Smoking Status: Current every day smoker How long have you smoked: 12 Exposure to second hand smoke: No Drug Use: none Patient Lives Alone: No - Nursing Vital Signs Nursing Vital Signs: Initial Vital Signs Temperature 99.2 F 05/11/18 17:48 Pulse Rate 63 05/11/18 17:48 Respiratory Rate 20 05/11/18 17:48 Blood Pressure 123/70 05/11/18 17:48 O2 Sat by Pulse Oximetry 100 05/11/18 17:48 Pain Scale Pain Intensity 7 - Physical Exam General Appearance: alert Eyes, Ears, Nose, Throat Exam: moist mucous membranes Neck Exam: non-tender, supple Abdominal Exam: No guarding Back Exam: No vertebral tenderness Elbow/Forearm Exam: soft tissue tenderness (MARKED IMPROVEMENT IN SWELLING AND REDNESS, CORE SWELLING 1CM IN DIAMETER OPEN CORE, RIGHT RADIAL PULSE 2+) Neuro/Tendon Exam: normal sensation, normal motor functions Mental Status Exam: alert, oriented x 3, cooperative Skin Exam: normal color, warm, dry SpO2: 100 Oxygen Delivery: Room Air Ordered Tests: Active Orders 24 hr Category Date Time Status IV Insertion STAT Care 05/11/18 18:06 Active Medication Summary Discontinued Medications Generic Name Dose Route Start Last Admin Trade Name Luz PRN Reason Stop Dose Admin Clindamycin HCl/Dextrose 600 mg in 50 mls @ 100 mls/hr 05/11/18 18:07 18:20 Clindamycin-D5w 600 Mg/50 Ml IV 05/11/18 18:36 100 ml/hr STAT STA 100 mls/hr Administration Clindamycin HCl/Dextrose Confirm 05/11/18 18:17 Clindamycin-D5w 600 Mg/50 Ml Administered 05/11/18 18:18 Dose 600 mg in 50 mls @ ud IV .STK-MED ONE - Progress Progress Note: 05/11/18 18:56 IV CLINDAMYCIN 600MG IVPB Counseled pt/family regarding: diagnosis, need for follow-up - Departure Time of Disposition: 19:00 Departure Disposition: Home Clinical Impression: CELLULITIS RIGHT ELBOW Condition: Stable Critical Care Time: No Referrals: DOCTOR,NO FAMILY [Primary Care Provider] - Additional Instructions: CLEANS WOUND WITH SOAP AND WATER EVERY 6 HOURS, THEN APPLY LOOSE BANDAID. OBTAIN ANTIBIOTIC CLINDAMYCIN 300MG EVERY 6 HOURS FOR 10 DAYS, CONSULT YOUR PRIMARY CARE PROVIDE FOR FOLLOWUP IN 4-5 DAYS.
[2018-05-11] MEDS ORDERED: CLINDAMYCIN-D5W 600 MG/50 ML*** 600 MG/50 ML BAG IV ONE (18:17)
== END 2018-05-11 19:12 | disposition home or self-care (01) ==
LOC: ED 17:35
DX: L03.113 Cellulitis of right upper limb (principal)
CPT/HCPCS: 36000; 96365; 99284

== ENCOUNTER 2019-03-12 07:54 | Emergency (ER) | payer BC, MEDICAID ==
[2019-03-12 08:03] VITALS: BP 148/86; O2SAT 100
[2019-03-12] MEDS ORDERED: DUONEB 0.5-3 MG/3 ml Neb IH ONE ×2 (08:13→08:19)
--- NOTE | 2019-03-12 08:18 | ERPHSYRPT ---
- History of Present Illness Time Seen by Provider: 03/12/19 08:05 Source: patient Exam Limitations: no limitations Patient Subjective Stated Complaint: pt here for cough, runny nose and headache since saturday. Triage Nursing Assessment: pt alert, walked in, resp easy, skin w/d/p. has nonproductive cough Physician History: Patient has had nasal congestion and cough for the past 6 days. Patient's girlfriend has similar symptoms, but no other sick contacts in the past month, no recent travel history the past month, or any suspicious rashes. Patient had to miss work on 03/11/2019 due to his symptoms. Cough seems to be worse when he lies down at night and he has a history of bronchitis in the past. Patient is a smoker. Timing/Duration: day(s) (6) Cough Quality/Degree: moderate, dry cough Possible Cause: occasional episodes, illness exposure Modifying Factors: Improves With: lying down. Worsens With: exertion Associated Symptoms: cough, headache, nasal congestion, nasal drainage, No fever , No chills, No chest pain/soreness, No dizziness, No earache, No facial pain, No lightheadedness, No muscle aches, No shortness of breath, No sinus infection , No sore throat Allergies/Adverse Reactions: No Known Drug Allergies Allergy (Verified 03/12/19 08:03) Home Medications: No Home Meds [No Home Meds] 0 mg PO UD 05/15/16 [History] Hx Tetanus, Diphtheria Vaccination/Date Given: No Hx Influenza Vaccination/Date Given: Yes Hx Pneumococcal Vaccination/Date Given: No Immunizations Up to Date: Yes - Review of Systems Constitutional: No Fever, No Chills Eyes: No Symptoms, No Discharge, No Eye Pain, No Eye Redness, No Photophobia Ears, Nose, & Throat: Nose Congestion, Nose Discharge, No Ear Pain, No Ear Discharge, No Epistaxis, No Throat Pain, No Throat Swelling, No Painful Swallowing Respiratory: Cough, No Dyspnea, No Dyspnea on Exertion (YA), No Stridor Cardiac: No Chest Pain, No Edema, No Syncope Abdominal/Gastrointestinal: No Abdominal Pain, No Nausea, No Vomiting, No Diarrhea Genitourinary Symptoms: No Hematuria, No Flank Pain Musculoskeletal: No Arthralgias, No Back Pain, No Neck Pain, No Joint Swelling, No Myalgias Skin: No Rash Neurological: No Dizziness, No Focal Weakness, No Sensory Changes Psychological: No Symptoms Endocrine: No Symptoms Hematologic/Lymphatic: No Easy Bleeding, No Easy Bruising All Other Systems: Reviewed and Negative - Past Medical History Pertinent Past Medical History: Yes Neurological History: Migraines ENT History: No Pertinent History Cardiac History: No Pertinent History Respiratory History: Bronchitis Endocrine Medical History: No Pertinent History Musculoskeletal History: No Pertinent History GI Medical History: No Pertinent History History: No Pertinent History Psycho-Social History: Depression, Other Male Reproductive Disorders: No Pertinent History - Past Surgical History Past Surgical History: Yes Neuro Surgical History: No Pertinent History Cardiac: No Pertinent History Respiratory: No Pertinent History Gastrointestinal: No Pertinent History Genitourinary: No Pertinent History Musculoskeletal: Orthopedic Surgery Male Surgical History: No Pertinent History Other Surgical History: CARPAL TUNEL SURGERY, finger - Social History Smoking Status: Current every day smoker How long have you smoked: 12 Exposure to second hand smoke: Yes Drug Use: none Patient Lives Alone: No - Nursing Vital Signs Nursing Vital Signs: Initial Vital Signs Temperature 98.4 F 03/12/19 07:59 Pulse Rate 100 H 03/12/19 07:59 Respiratory Rate 18 03/12/19 07:59 Blood Pressure 148/86 03/12/19 07:59 O2 Sat by Pulse Oximetry 97 03/12/19 07:59 Pain Scale Pain Intensity 7 - Physical Exam General Appearance: no apparent distress, alert Eye Exam: PERRL/EOMI, eyes nml inspection, No scleral icterus, No photophobia Ears, Nose, Throat Exam: TMs normal, pharynx normal, moist mucous membranes, other (nose has clear rhinorrhea with swollen mucosa over the turbinates) Neck Exam: normal inspection, non-tender, supple, full range of motion Respiratory Exam: lungs clear, airway intact, diminished breath sounds, wheezing , No respiratory distress, No accessory muscle use, No prolonged expirations, No crackles/rales, No rhonchi, No stridor, No pleural rub Cardiovascular Exam: regular rate/rhythm, normal heart sounds, normal peripheral pulses, capillary refill <2 sec, No murmur Gastrointestinal/Abdomen Exam: soft, normal bowel sounds, No tenderness, No distention, No mass, No rebound Back Exam: normal inspection, No CVA tenderness, No vertebral tenderness Extremity Exam: normal inspection, normal range of motion Neurologic Exam: alert, oriented x 3, cooperative, 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, normal mood/affect, nml station & gait, sensation nml, No motor deficits Skin Exam: normal color, warm, dry, No rash, No cyanosis, No jaundice Lymphatic Exam: No adenopathy SpO2 Interpretation: normal SpO2: 100 O2 Delivery: Room Air Ordered Tests: Active Orders 24 hr Category Date Time Status Peak Expiratory Flow Rate ONCE RT 03/12/19 08:23 Active Respiratory Therapy Assessment DAILY RT 03/12/19 08:23 Active Medication Summary Discontinued Medications Generic Name Dose Route Start Last Admin Trade Name Freq PRN Reason Stop Dose Admin Albuterol/Ipratropium 3 ml 03/12/19 08:13 03/12/19 08:20 Duoneb 0.5-3 Mg/3 Ml Neb IH 03/12/19 08:14 3 ml STAT ONE Administration Albuterol/Ipratropium Confirm 03/12/19 08:19 Duoneb 0.5-3 Mg/3 Ml Neb Administered 03/12/19 08:20 Dose 3 ml IH .STK-MED ONE - Progress Progress: improved, re-examined Air Movement: good Progress Note: 03/12/19 08:39 Improved airflow throughout the lung [place] with no wheeze, rhonchi, crackles, rales rubs. No respiratory distress, nontoxic, no accessory muscle use noted. Blood Culture(s) Obtained: No Antibiotics given: No Counseled pt/family regarding: diagnosis, need for follow-up, smoking cessation - Departure Departure Disposition: Home Clinical Impression: Acute upper respiratory infection of multiple sites, Elevated blood pressure reading without diagnosis of hypertension Acute bronchitis Qualifiers: Bronchitis organism: unspecified organism Qualified Code(s): J20.9 - Acute bronchitis, unspecified Condition: Good Critical Care Time: No Referrals: DOCTOR,NO FAMILY [Primary Care Provider] - CHARLY MONTENEGRO [ACTIVE STAFF] - 03/16/19 Instructions: DASH Diet, Quitting Smoking for Teens and Young Adults, Acute Bronchitis, Adult (DC), Viral Upper Respiratory Infection, Adult (DC), Cough, Adult (DC) Additional Instructions: Return immediately back to the emergency department if you have any worsening shortness of breath, new fever, new productive cough, chest tightness or any other concerning signs or symptoms that were not present at today's and return immediately for re-evaluation in the emergency department. Forms: Work/School Release Form Prescriptions: Albuterol Sulfate [Proair Hfa] 8.5 gm IH Q4H PRN PRN #1 [id number] PRN Reason: Wheezing/Chest Congestion Ipratropium [place] 2 spray NS Q8H PRN PRN #1 spray PRN Reason: Nasal Congestion/Rhinorrhea Prednisone 20 mg [Deltasone 20 mg] 60 mg PO DAILY PRN #9 tablet PRN Reason: Sore Throat Relief
[2019-03-12 08:24] VITALS: PULSE 91
[2019-03-12] MEDS ORDERED: Ventolin Hfa MDI IH PRN (08:41)
== END 2019-03-12 09:01 | disposition home or self-care (01) ==
LOC: ED 07:54
DX: J06.9 Acute upper respiratory infection, unspecified (principal); J20.9 Acute bronchitis, unspecified
CPT/HCPCS: 94150; 94640; 99283; A9270-GY

== ENCOUNTER 2019-05-27 19:45 | Emergency (ER) | payer SELFPAY ==
--- NOTE | 2019-05-27 19:53 | ERPHSYRPT ---
- History of Present Illness Time Seen by Provider: 05/27/19 19:52 Source: patient Exam Limitations: no limitations Physician History: patient has a history of chronic neck vein and left shoulder pain after that left clavicle fracture 10 years ago. Patient says that the pain has flared up her last a few days. He hurts around his left scapular area and the pain increases with the movement of the upper extremity. Timing/Duration: day(s) (2) Severity: moderate Modifying Factors: Improves With: movement, other (nnot getting better with Tylenol or Motrin) Associated Symptoms: No nausea, No vomiting, No abdominal pain, No shortness of breath, No heartburn, No diaphoresis, No cough, No chills, No chest pain, No fever, No headaches, No loss of appetite, No malaise, No rash, No syncope, No seizure, No weakness, No other Allergies/Adverse Reactions: No Known Drug Allergies Allergy (Verified 05/27/19 20:03) Hx Tetanus, Diphtheria Vaccination/Date Given: No Hx Influenza Vaccination/Date Given: Yes Hx Pneumococcal Vaccination/Date Given: No - Review of Systems Constitutional: No Fever, No Chills Eyes: No Symptoms Ears, Nose, & Throat: No Symptoms, Other (pposterior neck pain on the left side and also left scapular area pain.) Respiratory: No Cough, No Dyspnea Cardiac: No Chest Pain, No Edema, No Syncope Abdominal/Gastrointestinal: No Abdominal Pain, No Nausea, No Vomiting, No Diarrhea Genitourinary Symptoms: No Dysuria Musculoskeletal: Other (pposterior neck pain on the left side and also left scapular area pain.), No Back Pain, No Neck Pain Skin: No Rash Neurological: No Dizziness, No Focal Weakness, No Sensory Changes Psychological: No Symptoms Endocrine: No Symptoms All Other Systems: Reviewed and Negative - Past Medical History Pertinent Past Medical History: Yes Neurological History: Migraines ENT History: No Pertinent History Cardiac History: No Pertinent History Respiratory History: Bronchitis Endocrine Medical History: No Pertinent History Musculoskeletal History: No Pertinent History GI Medical History: No Pertinent History History: No Pertinent History Psycho-Social History: Depression, Other Male Reproductive Disorders: No Pertinent History - Past Surgical History Past Surgical History: Yes Neuro Surgical History: No Pertinent History Cardiac: No Pertinent History Respiratory: No Pertinent History Gastrointestinal: No Pertinent History Genitourinary: No Pertinent History Musculoskeletal: Orthopedic Surgery Male Surgical History: No Pertinent History Other Surgical History: CARPAL TUNEL SURGERY, finger - Social History Smoking Status: Current every day smoker How long have you smoked: 12 Exposure to second hand smoke: Yes Drug Use: none Patient Lives Alone: No - Nursing Vital Signs Nursing Vital Signs: Initial Vital Signs Temperature 98.9 F 05/27/19 19:50 Pulse Rate 80 05/27/19 19:50 Respiratory Rate 17 05/27/19 19:50 Blood Pressure 146/89 05/27/19 19:50 O2 Sat by Pulse Oximetry 100 05/27/19 19:50 Pain Scale Pain Intensity 8 - Physical Exam General Appearance: no apparent distress, alert Eye Exam: PERRL/EOMI, eyes nml inspection Ears, Nose, Throat Exam: normal ENT inspection, TMs normal, pharynx normal, moist mucous membranes Neck Exam: normal inspection, non-tender, supple, full range of motion, limited range of motion, other (lleft paraspinal muscle spasm in the cervical area.), No meningismus, No Kernig's Respiratory Exam: normal breath sounds, lungs clear, No respiratory distress Cardiovascular Exam: regular rate/rhythm, normal heart sounds, normal peripheral pulses Gastrointestinal/Abdomen Exam: soft, normal bowel sounds, No tenderness, No mass Back Exam: normal inspection, normal range of motion, other (pposterior neck pain on the left side and also left scapular area pain. muscle spasms present. Painful range of motion of the left upper extremity.), No CVA tenderness, No vertebral tenderness Extremity Exam: normal inspection, normal range of motion, pelvis stable, other (pposterior neck pain on the left side and also left scapular area pain. muscle spasms present. Painful range of motion of the left upper extremity.) Neurologic Exam: alert, oriented x 3, cooperative, normal mood/affect, nml cerebellar function, nml station & gait, sensation nml, No motor deficits Skin Exam: normal color, warm, dry, No rash Lymphatic Exam: No adenopathy Procedures - Additional Procedures Progress: left scapular area trigger point injection done with lidocaine 1% 4 mL and Decadron 4 mg under aseptic precautions. Patient tolerated procedure well. No complications. - Course Nursing assessment & vital signs reviewed: Yes Ordered Tests: Medication Summary Discontinued Medications Generic Name Dose Route Start Last Admin Trade Name Freq PRN Reason Stop Dose Admin Dexamethasone Sodium Phosphate Confirm 11/27/19 20:28 Decadron 4 Mg Inj Administered 05/27/19 20:29 Dose 4 mg .ROUTE .STK-MED ONE Dexamethasone Sodium Phosphate 4 mg 05/27/19 20:39 Decadron 4 Mg Inj IM 05/27/19 20:40 STAT ONE Lidocaine HCl 10 ml 05/27/19 20:11 05/27/19 20:30 Xylocaine 1% Hcl 20 Ml Mdv SUBDERMAL 05/27/19 20:12 4 ml STAT ONE Administration - Progress Progress: improved Progress Note: 05/27/19 20:40 ttrigger point injection by me in the ER. Counseled pt/family regarding: diagnosis, need for follow-up - Departure Departure Disposition: Home Clinical Impression: Cervicalgia Thoracic myofascial strain Qualifiers: Encounter type: initial encounter Qualified Code(s): S29.019A - Strain of muscle and tendon of unspecified wall of thorax, initial encounter Condition: Good Critical Care Time: No Referrals: DOCTOR,NO FAMILY [Primary Care Provider] - 05/28/19 Instructions: Cervical Muscle Strain (DC), Muscle Strain Prescriptions: Cyclobenzaprine HCl [Flexeril] 5 mg PO BID 5 Days #10 tablet
[2019-05-27 20:02] VITALS: O2SAT 100
[2019-05-27] MEDS ORDERED: XYLOCAINE 1% HCL 20 ML MDV SUBDERMAL ONE (20:11)
[2019-05-27] MEDS ORDERED: Decadron 4 MG INJ ONE (20:28)
[2019-05-27] MEDS ORDERED: Decadron 4 MG INJ IM ONE (20:39)
[2019-05-27] MEDS ORDERED: TORAdol 30 mg Injection IM ONE (20:40)
[2019-05-27] MEDS ORDERED: TORAdol 30 mg Injection ONE (20:42)
[2019-05-27 20:52] VITALS: BP 127/82; PULSE 63
== END 2019-05-27 21:05 | disposition home or self-care (01) ==
LOC: ED 19:45
DX: S29.019A Strain of muscle and tendon of unspecified wall of thorax, initial encounter (principal); M54.2 Cervicalgia
CPT/HCPCS: 96372; 99284; J1100; J1885

== ENCOUNTER 2019-09-23 19:26 | Emergency (ER) | payer SELFPAY ==
[2019-09-23] MEDS ORDERED: Sodium Chloride 0.9% 1000 ML 1,000 ML ONE (19:56)
[2019-09-23] MEDS ORDERED: Sodium Chloride 0.9% 1000 ML 1,000 ML IV STA (20:04)
--- NOTE | 2019-09-23 20:11 | ERPHSYRPT ---
- History of Present Illness Time Seen by Provider: 09/23/19 20:00 Exam Limitations: no limitations Patient Subjective Stated Complaint: pt states that symptoms began at 0400 this morning, pt states that he has only been to work and home, pt states that he had fever of 100, dry hacking cough with intermitten mucus production, pt states that he has had headache, pt states that he has lower back pain, pt state SOB at times Triage Nursing Assessment: pt ambulated into the er, pt is axo x4, afebrile, vitals wnl, dry hacking cough present, pt c/o sob, O2 99% RA, lung sounds clear in bilateral upper lobes, lower lobes diminished Physician History: This is a 28-year-old white male who presents with fever at home of 100 F, cough, shortness of air with coughing, headache that began at 4:00 this morning. Patient has no known exposure to anyone with any type of flu although he does state there is been people at his work that have been coughing quite a bit. He has not traveled outside of the [facility]. And he has had no known contact with anyone who tested positive for the coronavirus. Patient denies chest pain he denies abdominal pain he denies nausea vomiting or diarrhea. Patient has a history of migraine headaches and he is a daily smoker of cigarettes. Timing/Duration: today Cough Quality/Degree: mild, dry cough Possible Cause: no prior episodes, smoke exposure Modifying Factors: Improves With: coughing Associated Symptoms: fever, cough, headache, No chest pain/soreness International travel in last 2 weeks: No Allergies/Adverse Reactions: No Known Drug Allergies Allergy (Verified 09/23/19 20:00) Hx Tetanus, Diphtheria Vaccination/Date Given: Yes Hx Influenza Vaccination/Date Given: No Hx Pneumococcal Vaccination/Date Given: No Travel Risk - International Travel Have you traveled outside of the country in past 3 weeks: No Have you or anyone close to you been diagnosed with or: No Do your reside in a community with a known COVID-19 case?: Yes If Yes where:: [facility] - Coronavirus Screening Has patient experienced Coronavirus symptoms: Yes Symptoms experienced: respiratory symptoms (i.e.Cought,shortness of breath) Date of fever onset:: 09/23/19 Date of respiratory symptoms onset:: 03/25/20 - Review of Systems Constitutional: Fever Eyes: No Symptoms Ears, Nose, & Throat: No Symptoms Respiratory: Cough, Dyspnea (mild with coughing) Cardiac: No Symptoms Abdominal/Gastrointestinal: No Symptoms Genitourinary Symptoms: No Symptoms Musculoskeletal: No Symptoms Skin: No Symptoms Neurological: No Symptoms Psychological: No Symptoms Endocrine: No Symptoms Hematologic/Lymphatic: No Symptoms Immunological/Allergic: No Symptoms All Other Systems: Reviewed and Negative - Past Medical History Pertinent Past Medical History: Yes Neurological History: Migraines ENT History: No Pertinent History Cardiac History: No Pertinent History Respiratory History: Bronchitis Endocrine Medical History: No Pertinent History Musculoskeletal History: No Pertinent History GI Medical History: No Pertinent History History: No Pertinent History Psycho-Social History: Depression, Other Male Reproductive Disorders: No Pertinent History - Past Surgical History Past Surgical History: Yes Neuro Surgical History: No Pertinent History Cardiac: No Pertinent History Respiratory: No Pertinent History Gastrointestinal: No Pertinent History Genitourinary: No Pertinent History Musculoskeletal: Orthopedic Surgery Male Surgical History: No Pertinent History Other Surgical History: CARPAL TUNEL SURGERY, finger - Social History Smoking Status: Current every day smoker How long have you smoked: 12 Exposure to second hand smoke: Yes Drug Use: none Patient Lives Alone: No - Nursing Vital Signs Nursing Vital Signs: Initial Vital Signs Temperature 99.1 F 09/23/19 19:41 Pulse Rate 62 09/23/19 19:41 Respiratory Rate 12 09/23/19 19:41 Blood Pressure 137/72 09/23/19 19:41 O2 Sat by Pulse Oximetry 98 09/23/19 19:41 Pain Scale Pain Intensity 0 - Physical Exam General Appearance: no apparent distress, alert, anxiety Eye Exam: PERRL/EOMI, eyes nml inspection Ears, Nose, Throat Exam: normal ENT inspection, moist mucous membranes Neck Exam: normal inspection, non-tender, supple, full range of motion Respiratory Exam: normal breath sounds, lungs clear, airway intact, No chest tenderness, No respiratory distress Cardiovascular Exam: regular rate/rhythm, normal heart sounds, normal peripheral pulses Gastrointestinal/Abdomen Exam: soft, normal bowel sounds, No tenderness Rectal Exam: not done Back Exam: normal inspection, normal range of motion, No CVA tenderness, No vertebral tenderness Extremity Exam: normal inspection, normal range of motion, pelvis stable Neurologic Exam: alert, oriented x 3, cooperative, 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 Skin Exam: normal color, warm, dry Lymphatic Exam: No adenopathy SpO2 Interpretation: normal SpO2: 99 O2 Delivery: Room Air - Course Nursing assessment & vital signs reviewed: Yes EKG Interpreted by Me: RATE (55), Sinus Rhythm, NORMAL AXIS, NORMAL INTERVALS, NORMAL QRS Ordered Tests: Active Orders 24 hr Category Date Time Status Media [employer] Faculty Member STAT Care 09/23/19 20:14 Active EKG-ER Only STAT Care 09/23/19 20:13 Active IV Insertion STAT Care 09/23/19 20:17 Active Pulse Oximetry (ED) STAT Care 09/23/19 20:13 Active CHEST 1 VIEW (PORTABLE) Stat Exams 09/23/19 20:14 Taken [place] Screen Stat Lab 09/23/19 20:18 Completed Medication Summary Generic Name Dose Route Start Last Admin Trade Name Freq PRN Reason Stop Dose Admin Sodium Chloride 1,000 mls @ 999 mls/hr 09/23/19 20:04 09/23/19 20:08 Sodium Chloride 0.9% 1000 Ml IV 09/23/19 21:04 999 mls/hr .Q1H1M STA Administration Discontinued Medications Generic Name Dose Route Start Last Admin Trade Name Freq PRN Reason Stop Dose Admin Sodium Chloride Confirm 09/23/19 19:56 Sodium Chloride 0.9% 1000 Ml Administered 09/23/19 19:57 Dose 1,000 mls @ ud .ROUTE .STK-MED ONE Lab/Rad Data: Laboratory Results 09/23/19 Range/Units 20:18 Monoscreen NEGATIVE (Negative) - Progress Progress: improved, re-examined Air Movement: good Progress Note: 09/23/19 20:54 Chest x-ray reveals no acute pulmonary process. Blood Culture(s) Obtained: No Antibiotics given: No Counseled pt/family regarding: lab results, diagnosis, need for follow-up, rad results - Departure Departure Disposition: Home Clinical Impression: Bronchitis Condition: Stable Critical Care Time: No Referrals: DOCTOR,NO FAMILY [Primary Care Provider] - Additional Instructions: Drink plenty of fluids. Avoid exposure to any kind of smoke. Use Tylenol and ibuprofen for fever. Follow-up with your primary care provider for persistent symptoms. Forms: Work/School Release Form Prescriptions: Hydrocodone Bit/Acetaminophen [Hydrocodone-Acetaminophen Soln] 10 ml PO Q6H # 120 ml Prednisone 10 mg [Deltasone 10 mg] 10 mg PO TID #12 tablet
[2019-09-23 20:54] LABS: INFLUENZA A NEGATIVE (NEGATIVE); INFLUENZA B NEGATIVE (NEGATIVE); RESPIRATORY SYNCTIAL VIRUS NEGATIVE (Negative)
[2019-09-23 21:00] VITALS: BP 127/85; PULSE 64; O2SAT 98
--- NOTE | 2019-09-24 08:21 | XRAY ---
Indication: Fever, cough, short of breath. Comparison: November 23, 2017. Portable apical lordotic chest again demonstrates normal heart and lungs. Bony thorax intact. No new/acute findings.
== END 2019-09-23 21:16 | disposition home or self-care (01) ==
LOC: ED 19:26
DX: J40 Bronchitis, not specified as acute or chronic (principal); R05 Cough; R51 Headache; R50.9 Fever, unspecified; F17.200 Nicotine dependence, unspecified, uncomplicated
CPT/HCPCS: 36000; 36415; 71045; 86308; 87631; 87651; 93005; 93041; 94760; 96360; 99284

== ENCOUNTER 2023-11-14 17:09 | Emergency (ER) | payer BC, OTHER ==
[2023-11-14 17:26] VITALS: TEMP 98.5
[2023-11-14 18:09] LABS: Absolute Neutrophil Ct (ANC) 7.46 x10^3/uL (1.4-6.9); BASOPHIL % 0.3 % (0.0-0.4); Basophil (Absolute #) 0.03 x10^3/uL (0-0.4); Hematocrit 49.8 % (42-50); Hemoglobin 17.6 g/dL (12.5-18.0); IMMATURE GRAN # 0.03 x10^3u/L (0.00-0.03); IMMATURE GRAN % 0.3 % (0.00-0.4); Lymphocyte (Absolute #) 1.24 x10^3/uL (1.0-4.6); Lymphocytes % 12.7 % (24.0-44.0); Mean Cell Volume 92.2 fL (78-100); Mean Corpuscular Hemoglobin 32.6 pg (26-32); Mean Corpuscular Hgb Concent. 35.3 g/dL (32-36); Monocyte (Absolute #) 0.92 x10^3/uL (0.0-1.3); Monocytes % 9.4 % (0.0-12.0); Neutrophil % 76.3 % (36.0-66.0); Platelet Count 277 x10^3/uL (150-450); Red Cell Distribution Width 12.2 % (11.5-14.0); White Blood Count 9.8 x10^3/uL (4.0-10.5)
[2023-11-14] MEDS ORDERED: Zofran 4 MG/2 ML VIAL ONE (18:10)
[2023-11-14] MEDS ORDERED: Sodium Chloride 0.9% 1000 ML 1,000 ML ONE (18:10)
[2023-11-14] MEDS ORDERED: TYLENOL 325 MG ONE (18:10)
[2023-11-14] MEDS: TYLENOL 325 MG PO ONE (18:11)
[2023-11-14] MEDS: Zofran 4 MG/2 ML VIAL IV ONE (18:11)
[2023-11-14] MEDS: Sodium Chloride 0.9% 1000 ML 1,000 ML IV STA (18:12)
[2023-11-14 18:23] LABS: ALBUMIN 4.7 g/dL (3.5-5.0); ANION GAP 11.6 MEQ/L (5-15); BILIRUBIN,TOTAL 0.8 mg/dL (0.2-1.3); Calcium 9.5 mg/dL (8.4-10.2); Creatinine 1 1.1 mg/dL (0.66-1.25); EST GLOMERULAR FILTRATION RATE 92.6 ML/MIN; Potassium 4.4 mmol/L (3.5-5.1); Total Protein 7.9 g/dL (6.3-8.2)
[2023-11-14 18:45] LABS: INFLUENZA A NEGATIVE (NEGATIVE); INFLUENZA B NEGATIVE (NEGATIVE); RESPIRATORY SYNCTIAL VIRUS NEGATIVE (NEGATIVE); SARS-CoV-2 Xpert Express NEGATIVE (NEGATIVE)
[2023-11-14 19:04] VITALS: O2SAT 97
--- NOTE | 2023-11-14 19:17 | ERPHSYRPT ---
- History of Present Illness Time Seen by Provider: 11/14/23 17:53 Source: patient Exam Limitations: no limitations Patient Subjective Stated Complaint: pt states he went to the dentist and was prescribed antibiotic. pt states since taking the antibiotic he hasn't felt good Triage Nursing Assessment: pt ambulated into the er; pt is axo x4; pt denies pain; skin PDW; rhinorhea; cough present; clear lung sounds in all lobes; no respiratory distress present; skin PDW; vitals wnl Physician History: 32-year-old male with history of periodontal disease, has been evaluated by dentist yesterday, placed on amoxicillin presented in the ER with 2-3 episodes of nonprojectile, nonbilious vomiting without hematemesis. Denies any abdominal pain. Also reports sinus/nasal congestion and nonproductive cough. Patient has mild headache, feeling dizzy occasionally and aches and pains all over. Patient reports he feels dehydrated. Subjective feeling of fever and chills. Allergies/Adverse Reactions: No Known Drug Allergies Allergy (Verified 11/14/23 17:16) Home Medications: Amoxicillin 500 mg PO TID 11/14/23 [History] Hx Tetanus, Diphtheria Vaccination/Date Given: Yes Hx Influenza Vaccination/Date Given: No Hx Pneumococcal Vaccination/Date Given: No Travel Risk - International Travel Have you traveled outside of the country in past 3 weeks: No - Emerging Infectious Disease Are you exhibiting symptoms associated with any current EIDs: Yes Symptoms: Cough: New Onset, Headaches/Body Aches/, Vomitting - Review of Systems Constitutional: Fever, Chills, Fatigue, Weakness Eyes: No Symptoms Ears, Nose, & Throat: Nose Congestion, Sinus Drainage, Mouth Pain Respiratory: Cough Cardiac: No Symptoms Abdominal/Gastrointestinal: Nausea, Vomiting Genitourinary Symptoms: No Symptoms Musculoskeletal: Myalgias Skin: No Symptoms Neurological: No Symptoms Psychological: No Symptoms Endocrine: No Symptoms Hematologic/Lymphatic: No Symptoms - Past Medical History Pertinent Past Medical History: Yes Neurological History: Migraines ENT History: No Pertinent History Cardiac History: No Pertinent History Respiratory History: Bronchitis Endocrine Medical History: No Pertinent History Musculoskeletal History: No Pertinent History GI Medical History: No Pertinent History History: No Pertinent History Psycho-Social History: Depression, Other Male Reproductive Disorders: No Pertinent History - Past Surgical History Past Surgical History: Yes Neuro Surgical History: No Pertinent History Cardiac: No Pertinent History Respiratory: No Pertinent History Gastrointestinal: No Pertinent History Genitourinary: No Pertinent History Musculoskeletal: Orthopedic Surgery Male Surgical History: No Pertinent History Other Surgical History: CARPAL TUNEL SURGERY, finger - Social History Smoking Status: Current every day smoker How long have you smoked: 12 Exposure to second hand smoke: Yes Drug Use: none Patient Lives Alone: No - Nursing Vital Signs Nursing Vital Signs: Initial Vital Signs Temperature 98.5 F 11/14/23 17:17 Pulse Rate 86 11/14/23 17:17 Respiratory Rate 16 11/14/23 17:17 Blood Pressure 145/93 11/14/23 17:17 O2 Sat by Pulse Oximetry 97 11/14/23 17:17 Pain Scale Pain Intensity 0 - Physical Exam General Appearance: no apparent distress, alert Eye Exam: PERRL/EOMI Ears, Nose, Throat Exam: pharynx normal, moist mucous membranes, other (Multiple dental caries. No gingival swelling or tenderness) Neck Exam: normal inspection, non-tender, supple, full range of motion Respiratory Exam: normal breath sounds, lungs clear Cardiovascular Exam: regular rate/rhythm, normal heart sounds Gastrointestinal/Abdomen Exam: soft, normal bowel sounds, No tenderness Back Exam: normal inspection, normal range of motion Extremity Exam: normal inspection, normal range of motion, pelvis stable Neurologic Exam: alert, oriented x 3, cooperative Skin Exam: normal color SpO2 Interpretation: normal SpO2: 97 O2 Delivery: Room Air Ordered Tests: Active Orders 24 hr Category Date Time Status IV Insertion STAT Care 11/14/23 17:53 Active CBC W DIFF Stat Lab 11/14/23 18:05 Completed CMP Stat Lab 11/14/23 18:05 Completed LIPASE Stat Lab 11/14/23 18:05 Completed UA W/RFX UR CULTURE Stat Lab 11/14/23 19:47 Completed Medication Summary Discontinued Medications Generic Name Dose Route Start Last Admin Trade Name Freq PRN Reason Stop Dose Admin Acetaminophen 975 mg 11/14/23 17:53 11/14/23 18:11 Acetaminophen 325 Mg Tablet PO 11/14/23 17:54 975 mg STAT ONE Administration Acetaminophen Confirm 11/14/23 18:10 Acetaminophen 325 Mg Tablet Administered 11/14/23 18:11 Dose 975 mg .ROUTE .STK-MED ONE Sodium Chloride 1,000 mls @ 999 mls/hr 11/14/23 17:53 11/14/23 19:13 Sodium Chloride 0.9% 1000 Ml IV 11/14/23 18:53 Infused .Q1H1M STA Infusion Sodium Chloride Confirm 11/14/23 18:10 Sodium Chloride 0.9% 1000 Ml Administered 11/14/23 18:11 Dose 1,000 mls @ ud .ROUTE .STK-MED ONE Ondansetron HCl 4 mg 11/14/23 17:53 11/14/23 18:11 Ondansetron Hcl 4 Mg/2 Ml Vial IV 11/14/23 17:54 4 mg STAT ONE Administration Ondansetron HCl Confirm 11/14/23 18:10 Ondansetron Hcl 4 Mg/2 Ml Vial Administered 11/14/23 18:11 Dose 4 mg .ROUTE .STK-MED ONE Lab/Rad Data: Laboratory Result Diagrams 11/14/23 18:05 11/14/23 18:05 Laboratory Results 11/14/23 11/14/23 11/14/23 Range/Units 19:47 18:05 18:05 WBC (4.0-10.5) x10^3/uL RBC (4.1-5.6) x10^6/uL Hgb (12.5-18.0) g/dL Hct (42-50) % MCV (78-100) fL MCH (26-32) pg MCHC (32-36) g/dL RDW (11.5-14.0) % Plt Count (150-450) x10^3/uL MPV (7.5-11.0) fL Gran % (36.0-66.0) % Immature Gran % (Auto) (0.00-0.4) % Nucleat RBC Rel Count (0.00-0.1) % Eos # (Auto) (0-0.5) x10^3/uL Immature Gran # (Auto) (0.00-0.03) x10^3u/L Absolute Lymphs (auto) (1.0-4.6) x10^3/uL Absolute Monos (auto) (0.0-1.3) x10^3/uL Absolute Nucleated RBC (0.00-0.01) x10^3u/L Lymphocytes % (24.0-44.0) % Monocytes % (0.0-12.0) % Eosinophils % (0.00-5.0) % Basophils % (0.0-0.4) % Absolute Granulocytes (1.4-6.9) x10^3/uL Basophils # (0-0.4) x10^3/uL Sodium 140 (135-145) mmol/L Potassium 4.4 (3.5-5.1) mmol/L Chloride 105 (98-107) mmol/L Carbon Dioxide 27 (22-30) mmol/L Anion Gap 11.6 (5-15) MEQ/L BUN 16 (9-20) mg/dL Creatinine 1.10 (0.66-1.25) mg/dL Estimated GFR 92.6 ML/MIN Glucose 96 (74-106) mg/dL Calcium 9.5 (8.4-10.2) mg/dL Total Bilirubin 0.80 (0.2-1.3) mg/dL AST 45 (17-59) U/L ALT 42 (0-50) U/L Alkaline Phosphatase 63 (38-126) U/L Serum Total Protein 7.9 (6.3-8.2) g/dL Albumin 4.7 (3.5-5.0) g/dL Lipase 62 (23-300) U/L Urine Color Dark Yellow (Yellow) Urine Appearance Clear (Clear) Urine pH 6.5 (4.6-8.0) Ur Specific Edmonson >=1.030 A (1.005-1.030) Urine Protein 30 (Negative) Urine Glucose (UA) Negative (Negative) mg/dL Urine Ketones Trace A (Negative) Urine Blood Negative (Negative) Urine Nitrite Negative (Negative) Urine Bilirubin Negative (Negative) Urine Urobilinogen 1.0 A (0.2) mg/dL Ur Leukocyte Esterase Trace A (Negative) U Hyaline Cast (Auto) NONE SEEN (0-2) /LPF Urine Microscopic RBC 0-2 (0-5) /HPF Urine Microscopic WBC 6-10 A (0-5) /HPF Ur Epithelial Cells None Seen (None Seen) /HPF Urine Bacteria None Seen (None Seen) /HPF Urine Culture Reflexed NO (NO) Influenza Type A Ag NEGATIVE (NEGATIVE) Influenza Type B Ag NEGATIVE (NEGATIVE) RSV (PCR) NEGATIVE (NEGATIVE) SARS-CoV-2 (PCR) NEGATIVE (NEGATIVE) 05/16/24 Range/Units 18:05 WBC 9.8 (4.0-10.5) x10^3/uL RBC 5.40 (4.1-5.6) x10^6/uL Hgb 17.6 (12.5-18.0) g/dL Hct 49.8 (42-50) % MCV 92.2 (78-100) fL MCH 32.6 H (26-32) pg MCHC 35.3 (32-36) g/dL RDW 12.2 (11.5-14.0) % Plt Count 277 (150-450) x10^3/uL MPV 10.0 (7.5-11.0) fL Gran % 76.3 H (36.0-66.0) % Immature Gran % (Auto) 0.3 (0.00-0.4) % Nucleat RBC Rel Count 0.0 (0.00-0.1) % Eos # (Auto) 0.10 (0-0.5) x10^3/uL Immature Gran # (Auto) 0.03 (0.00-0.03) x10^3u/L Absolute Lymphs (auto) 1.24 (1.0-4.6) x10^3/uL Absolute Monos (auto) 0.92 (0.0-1.3) x10^3/uL Absolute Nucleated RBC 0.00 (0.00-0.01) x10^3u/L Lymphocytes % 12.7 L (24.0-44.0) % Monocytes % 9.4 (0.0-12.0) % Eosinophils % 1.0 (0.00-5.0) % Basophils % 0.3 (0.0-0.4) % Absolute Granulocytes 7.46 H (1.4-6.9) x10^3/uL Basophils # 0.03 (0-0.4) x10^3/uL Sodium (135-145) mmol/L Potassium (3.5-5.1) mmol/L Chloride (98-107) mmol/L Carbon Dioxide (22-30) mmol/L Anion Gap (5-15) MEQ/L BUN (9-20) mg/dL Creatinine (0.66-1.25) mg/dL Estimated GFR ML/MIN Glucose (74-106) mg/dL Calcium (8.4-10.2) mg/dL Total Bilirubin (0.2-1.3) mg/dL AST (17-59) U/L ALT (0-50) U/L Alkaline Phosphatase (38-126) U/L Serum Total Protein (6.3-8.2) g/dL Albumin (3.5-5.0) g/dL Lipase (23-300) U/L Urine Color (Yellow) Urine Appearance (Clear) Urine pH (4.6-8.0) Ur Specific Ed[place]on (1.005-1.030) Urine Protein (Negative) Urine Glucose (UA) (Negative) mg/dL Urine Ketones (Negative) Urine Blood (Negative) Urine Nitrite (Negative) Urine Bilirubin (Negative) Urine Urobilinogen (0.2) mg/dL Ur Leukocyte Esterase (Negative) U Hyaline Cast (Auto) (0-2) /LPF Urine Microscopic RBC (0-5) /HPF Urine Microscopic WBC (0-5) /HPF Ur Epithelial Cells (None Seen) /HPF Urine Bacteria (None Seen) /HPF Urine Culture Reflexed (NO) Influenza Type A Ag (NEGATIVE) Influenza Type B Ag (NEGATIVE) RSV (PCR) (NEGATIVE) SARS-CoV-2 (PCR) (NEGATIVE) - Progress Progress: improved Progress Note: 11/14/23 20:31 32 years old is evaluated for generalized flulike symptoms. Patient is not in any distress. He is afebrile, given fluids, on reevaluation feeling much better. Patient has normal white count, fairly unremarkable chemistries, negative flu and COVID. Abdominal exam is soft nontender with good bowel sounds. Lungs bilateral clear to auscultation. Patient does have some sinus/nasal congestion which I believe is a viral etiology. He has a questionable just touch of UTI and is on amoxicillin which would cover. I do not think patient needs another antibiotic. Recommended supportive care. Do not think patient needs any imaging. On reevaluation abdominal exam is nonsurgical. I will give him Zofran to go home take as needed and outpatient follow-up. Discussed signs symptoms of worsening needing return to ER which she seems understanding. Counseled pt/family regarding: lab results, diagnosis, need for follow-up Medical Desision Making - Diagnostic Testing Diagnostic test were ordered, analyzed, and reviewed by me: Yes - Risk of complications The pt has a mod risk of morbidity or mortality based on: Need for prescription drug management - Departure Departure Disposition: Home Clinical Impression: Viral syndrome, Generalized weakness Condition: Stable Critical Care Time: No Referrals: DOCTOR,NO FAMILY [Primary Care Provider] - Follow up/PCP as directed VAHE RICE MD [ACTIVE STAFF] - Follow up/PCP as directed (Call for appointment for reevaluation) Instructions: Weakness ED Additional Instructions: Drink plenty of fluids. Take Tylenol/Zofran as needed. Follow-up with primary care for reevaluation. Continue with your amoxicillin. Return to ER for any worsening. Prescriptions: Ondansetron ODT 4 MG [Zofran Odt 4 mg] 1 ea PO QIDPRN PRN #7 tablet PRN Reason: n/v
[2023-11-14 19:52] LABS: Appearance Clear (Clear); Bacteria None Seen /HPF (None Seen); Bilirubin Negative (Negative); Blood Negative (Negative); Epithelial Cells None Seen /HPF (None Seen); Glucose, Urine Negative (Negative); Hyaline Casts NONE SEEN /LPF (0-2); Ketones Trace (Negative); Leukocyte Esterase Trace (Negative); Nitrite Negative (Negative); Ph 6.5 (4.6-8.0); Protein,Urine Dip 30 (Negative); RBC 0-2 /HPF (0-5); Specific Gravity >=1.030 (1.005-1.030)
[2023-11-14 20:15] LABS: ADD URINE CULTURE? NO (NO)
[2023-11-14 20:54] VITALS: BP 127/81; PULSE 77; RESP 16
== END 2023-11-14 20:54 | disposition home or self-care (01) ==
LOC: ED 17:09
DX: B34.9 Viral infection, unspecified (principal); R53.1 Weakness; R11.2 Nausea with vomiting, unspecified; R09.81 Nasal congestion; R05.9 Cough, unspecified; R51.9 Headache, unspecified; R42 Dizziness and giddiness; M79.10 Myalgia, unspecified site; Z72.0 Tobacco use
CPT/HCPCS: 0241U; 36000; 36415; 80053; 81001; 83690; 85025; 96360; 96374; 99284; J2405; A9270-GY

== ENCOUNTER 2023-12-23 19:46 | Emergency (ER) | payer BC, OTHER ==
[2023-12-23 20:28] VITALS: RESP 17; TEMP 98.7; O2SAT 97
--- NOTE | 2023-12-23 20:59 | ERPHSYRPT ---
- History of Present Illness Source: patient Exam Limitations: no limitations Patient Subjective Stated Complaint: mouth pain since having 2 molars pulled on Saturday, can't hardly open mouth Triage Nursing Assessment: pt ambulated into ER without diff. Pt c/o left lower mouth pain. Pt had 2 molars pulled on Saturday to left lower gum. Pt states "I haven't been able to eat and can't hardly open my mouth". Pt is out of pain meds, states, "the pharmacist said my insurance would only pay for half of what was ordered by the dentist". Pt has not contacted the dentist about his issue. Physician History: 33-year-old male who had to the left inferior molars removed on 12/20/2023 presents with worsening pain. Patient states that he has run out of the Tylenol 3's that his dentist has prescribed him. He did not contact his dentist today. Pain is 7 out of 10 and worse with chewing. Timing/Duration: gradual onset Severity: moderate ENT Location: mouth Prearrival Treatment: prescription meds Modifying Factors: Improves With: other ( Worse with chewing) Associated Symptoms: denies symptoms Allergies/Adverse Reactions: No Known Drug Allergies Allergy (Verified 12/23/23 20:35) Hx Tetanus, Diphtheria Vaccination/Date Given: Yes Hx Influenza Vaccination/Date Given: No Hx Pneumococcal Vaccination/Date Given: No Travel Risk - International Travel Have you traveled outside of the country in past 3 weeks: No - Emerging Infectious Disease Are you exhibiting symptoms associated with any current EIDs: No Symptoms: Cough: New Onset, Headaches/Body Aches/, Vomitting - Review of Systems Constitutional: No Symptoms Eyes: No Symptoms Respiratory: No Symptoms Cardiac: No Symptoms Abdominal/Gastrointestinal: No Symptoms Genitourinary Symptoms: No Symptoms Musculoskeletal: No Symptoms Skin: No Symptoms Neurological: No Symptoms Psychological: No Symptoms Endocrine: No Symptoms Hematologic/Lymphatic: No Symptoms Immunological/Allergic: No Symptoms - Past Medical History Pertinent Past Medical History: Yes Neurological History: Migraines ENT History: No Pertinent History Cardiac History: No Pertinent History Respiratory History: Bronchitis Endocrine Medical History: No Pertinent History Musculoskeletal History: Fractures GI Medical History: No Pertinent History History: No Pertinent History Psycho-Social History: Depression, Other Male Reproductive Disorders: No Pertinent History Other Medical History: fx collar bone - Past Surgical History Past Surgical History: Yes Neuro Surgical History: No Pertinent History Cardiac: No Pertinent History Respiratory: No Pertinent History Gastrointestinal: No Pertinent History Genitourinary: No Pertinent History Musculoskeletal: Orthopedic Surgery Male Surgical History: No Pertinent History Other Surgical History: CARPAL TUNEL SURGERY, finger - Social History Smoking Status: Current every day smoker How long have you smoked: 19 Exposure to second hand smoke: No Drug Use: none Patient Lives Alone: No - Social Determinants of Health Will the patient participate in the screening: Yes Do you worry about a steady place to live?: No Do you have any problems with any of the following?: No known problems In the past 12 months,have you had to go without utilities?: No Transportation Issues: No Has anyone in your support network made you feel unsafe?: No Have you or anyone in your house had to go without enough: No - Nursing Vital Signs Nursing Vital Signs: Initial Vital Signs Temperature 98.7 F 12/23/23 20:27 Pulse Rate 62 12/23/23 20:27 Respiratory Rate 17 12/23/23 20:27 Blood Pressure 133/90 12/23/23 20:27 O2 Sat by Pulse Oximetry 97 12/23/23 20:27 Pain Scale Pain Intensity 7 mildly hypertensive - Physical Exam General Appearance: no apparent distress Eye Exam: bilateral eye: normal inspection, PERRL, EOMI Ear Exam: bilateral ear: auricle normal, canal normal, TM normal Nasal Exam: normal inspection Throat Exam: pharynx normal, dental tenderness ( left inferior first and second molar extraction site without exudate or significant gingival edema but mildly tender to palpation/ patient has a great airway and there is no evidence of peritonsillar abscess), pharynx swelling Neck Exam: normal inspection, non-tender, supple, full range of motion Cardiovascular/Respiratory Exam: normal breath sounds, regular rate/rhythm, heart sounds normal Abdominal Exam: non-tender, soft Neurologic Exam: alert, oriented x 3, cooperative, preventive maintenance coordinator II-XII nml as tested, normal mood/affect, nml cerebellar function, nml station & gait, sensation nml Skin Exam: normal color, warm, dry SpO2 Interpretation: normal SpO2: 97 O2 Delivery: Room Air - Course Nursing assessment & vital signs reviewed: Yes Ordered Tests: Medication Summary Discontinued Medications Generic Name Dose Route Start Last Admin Trade Name Freq PRN Reason Stop Dose Admin Ketorolac Tromethamine 60 mg 12/23/23 20:53 12/23/23 21:07 Ketorolac Tromethamine 30 Mg/Ml Inj IM 12/23/23 20:54 60 mg STAT ONE Administration Ketorolac Tromethamine Confirm 12/23/23 21:03 Ketorolac Tromethamine 30 Mg/Ml Inj Administered 12/23/23 21:04 Dose 60 mg .ROUTE .STK-MED ONE - Progress Progress: improved Progress Note: 12/23/23 22:15 33-year-old male with postextraction pain. Patient in no apparent distress and there is no evidence of abscess or dry socket this time. He was given 60 mg IM Toradol and instructed to follow-up with his dentist first thing in the morning. Prescription for Toradol 10 g p.o. 3 times daily as needed was sent to patient's pharmacy. Nursing note and vital signs thoroughly reviewed. No food or housing insecurity noted. Counseled pt/family regarding: diagnosis, need for follow-up Medical Desision Making - Risk of complications The pt has a mod risk of morbidity or mortality based on: Need for prescription drug management - Departure Departure Disposition: Home Clinical Impression: Pain, dental Condition: Stable Critical Care Time: No Referrals: DOCTOR,NO FAMILY [Primary Care Provider] - Follow up/PCP as directed Instructions: Dental Pain ED Additional Instructions: Follow-up with your dentist first thing in the morning Toradol as needed for pain Return to ER as needed Prescriptions: Ketorolac Trometh 10 mg Tab [TORAdol 10 MG TABLET] 10 mg PO TID PRN PRN #10 tablet PRN Reason: Pain
[2023-12-23 21:03] VITALS: BP 126/83; PULSE 56
[2023-12-23] MEDS ORDERED: TORAdol 30 mg Injection ONE (21:03)
[2023-12-23] MEDS: TORAdol 30 mg Injection IM ONE (21:07)
== END 2023-12-23 21:27 | disposition home or self-care (01) ==
LOC: ED 19:46
DX: K08.89 Other specified disorders of teeth and supporting structures (principal); Z72.0 Tobacco use
CPT/HCPCS: 96372; 99283; J1885